=== PATIENT | female | born 1940 | race Caucasian/White ===

== ENCOUNTER 2020-07-30 11:00 | Inpatient (IN) | payer MEDICARE ==
[~2020-07-30] VITALS: Ht 157.5 cm; Wt 55.5 kg
[2020-07-30] MEDS ORDERED: ASPIRIN 81 MG CHEW TAB PO ONE (11:30)
[2020-07-30 11:46] LABS: HEMATOCRIT 44.1 % (34.2-44.1); HEMOGLOBIN 12.9 g/dL (12.0-16.0); MEAN CORPUSCULAR HGB CONC 29.3 g/dL (31-35); MEAN CORPUSCULAR VOLUME 71.7 fL (81-99); RED BLOOD COUNT 6.15 x10e6/uL (3.6-5.1); RED CELL DISTRIBUTION WIDTH 21.4 % (11.7-14.4)
[2020-07-30 11:47] LABS: BASOPHILS % 0.4 % (0.0-1.0); EOSINOPHILS % 0.8 % (0.0-6.0); LYMPHOCYTES # (AUTO) 0.4 (1.0-3.2); LYMPHOCYTES % 9.1 % (18.0-39.1); MONOCYTES # (AUTO) 0.3 (0.2-0.8); MONOCYTES % 5.9 % (4.4-11.3); NEUTROPHILS # (AUTO) 3.9 (2.1-6.9); NEUTROPHILS % 83.4 % (38.7-80.0); PLATELET COUNT 284 x10e3/uL (140-360)
[2020-07-30 12:07] LABS: ALANINE AMINOTRANSFERASE 9 IU/L (0-55); ALBUMIN 3.6 g/dL (3.5-5.0); ALKALINE PHOSPHATASE 181 IU/L (40-150); ANION GAP 16.3 mmol/L (8-16); BLOOD UREA NITROGEN 9 mg/dL (7-26); BUN/CREATININE RATIO 11 (6-25); CALCIUM 8.5 mg/dL (8.4-10.2); CARBON DIOXIDE 25 mmol/L (22-29); CHLORIDE 103 mmol/L (98-107); CREATINE KINASE 25 IU/L (29-168); CREATININE, SERUM 0.81 mg/dL (0.57-1.11); EST GLOMERULAR FILTRATION RATE > 60 ML/MIN (60-); GLUCOSE 119 mg/dL (74-118); POTASSIUM 3.3 mmol/L (3.5-5.1); SODIUM 141 mmol/L (136-145)
[2020-07-30] MEDS: ASPIRIN 81 MG CHEW TAB PO ONE ×2 (13:15→13:45)
[2020-07-30 15:35] VITALS: BP 183/88
[2020-07-30 15:43] VITALS: BP 183/88
[2020-07-30 15:54] VITALS: BP 182/92
[2020-07-30] MEDS ORDERED: POTASSIUM CHLORIDE 20 MEQ TAB CR PO STA (16:13)
[2020-07-30 20:00] VITALS: BP 174/89
[2020-07-30] MEDS ORDERED: HYDRALAZINE HCL10 MG IV (20:11)
[2020-07-30 20:28] LABS: CREATINE KINASE MB 0.6 ng/mL (0-5.0)
[2020-07-30] MEDS ORDERED: HYDRALAZINE HCL 20 MG/ML VIAL ONE (22:01)
[2020-07-30] MEDS ORDERED: SODIUM CHLORIDE 0.9% 250ML 250 ML ONE (23:26)
[2020-07-30] MEDS ORDERED: HYDRALAZINE HCL 20 MG/ML VIAL IV PRN (23:45)
[2020-07-30] MEDS: SODIUM CHLORIDE 0.9% 1000ML 250 ML IV SCH (23:45)
[2020-07-31] VITALS (7 sets, daily range): BP systolic 105–149; BP diastolic 57–102
[2020-07-31] MEDS: SODIUM CHLORIDE 0.9% 1000ML 250 ML IV SCH (00:35)
[2020-07-31] MEDS ORDERED: HYDRALAZINE HCL 20 MG/ML VIAL IV PRN (03:45)
[2020-07-31 06:06] LABS: BASOPHILS % 0.5 % (0.0-1.0); EOSINOPHILS % 0.2 % (0.0-6.0); HEMATOCRIT 41.4 % (34.2-44.1); HEMOGLOBIN 12.3 g/dL (12.0-16.0); LYMPHOCYTES # (AUTO) 0.6 (1.0-3.2); LYMPHOCYTES % 10.5 % (18.0-39.1); MEAN CORPUSCULAR HEMOGLOBIN 21.1 pg (28-32); MEAN CORPUSCULAR HGB CONC 29.7 g/dL (31-35); MEAN CORPUSCULAR VOLUME 71.1 fL (81-99); MONOCYTES # (AUTO) 0.3 (0.2-0.8); MONOCYTES % 5.6 % (4.4-11.3); NEUTROPHILS # (AUTO) 4.7 (2.1-6.9); NEUTROPHILS % 82.8 % (38.7-80.0); PLATELET COUNT 249 x10e3/uL (140-360); RED BLOOD COUNT 5.82 x10e6/uL (3.6-5.1); RED CELL DISTRIBUTION WIDTH 21.6 % (11.7-14.4)
[2020-07-31 06:32] LABS: ALANINE AMINOTRANSFERASE 10 IU/L (0-55); ALBUMIN 3.2 g/dL (3.5-5.0); ALKALINE PHOSPHATASE 162 IU/L (40-150); ANION GAP 14.1 mmol/L (8-16); BLOOD UREA NITROGEN 10 mg/dL (7-26); BUN/CREATININE RATIO 13 (6-25); CALCIUM 8.2 mg/dL (8.4-10.2); CARBON DIOXIDE 22 mmol/L (22-29); CHLORIDE 109 mmol/L (98-107); CREATININE, SERUM 0.79 mg/dL (0.57-1.11); EST GLOMERULAR FILTRATION RATE > 60 ML/MIN (60-); GLUCOSE 102 mg/dL (74-118); POTASSIUM 4.1 mmol/L (3.5-5.1); SODIUM 141 mmol/L (136-145)
[2020-07-31 06:55] LABS: CREATINE KINASE MB 1.4 ng/mL (0-5.0)
[2020-07-31] MEDS ORDERED: DOCUSATE SODIUM 100 MG CAP PO PRN (07:00)
[2020-07-31] MEDS ORDERED: ACETAMINOPHEN 325 MG TAB PO PRN (07:00)
[2020-07-31] MEDS: FAMOTIDINE 20 MG TAB PO SCH ×2 (07:30→16:21)
[2020-07-31] MEDS: METOPROLOL TARTRATE 25 MG TAB PO SCH ×2 (08:00→21:11)
[2020-07-31] MEDS: BENZONATATE 100 MG CAP PO SCH ×3 (08:28→21:00)
[2020-07-31] MEDS: AZITHROMYCIN 500MG/NS 250 ML 250 ML IV SCH (08:30)
[2020-07-31] MEDS ORDERED: SODIUM CHLORIDE 0.9% 250ML 250 ML ONE (08:35)
[2020-07-31] MEDS ORDERED: SODIUM CHLORIDE 0.9% 50ML 50 ML ONE (10:04)
[2020-07-31] MEDS ORDERED: IOPAMIDOL 370 MG/ML 200 ML INFUS..BTL INJ ONE (10:04)
[2020-07-31] MEDS ORDERED: REGADENOSON 0.4 MG/5 ML SYR IV ONE (12:06)
[2020-07-31] MEDS: LOSARTAN POTASSIUM 100 MG TAB PO SCH (17:12)
[2020-08-01] VITALS (7 sets, daily range): BP systolic 113–152; BP diastolic 65–77
[2020-08-01] MEDS: FAMOTIDINE 20 MG TAB PO SCH ×2 (08:00→17:07)
[2020-08-01] MEDS: BENZONATATE 100 MG CAP PO SCH ×3 (09:00→21:03)
[2020-08-01] MEDS: AZITHROMYCIN 500MG/NS 250 ML 250 ML IV SCH (09:17)
[2020-08-01] MEDS: LOSARTAN POTASSIUM 100 MG TAB PO SCH (09:17)
[2020-08-01] MEDS: METOPROLOL TARTRATE 25 MG TAB PO SCH ×2 (09:17→21:03)
[2020-08-02] VITALS (8 sets, daily range): BP systolic 118–158; BP diastolic 59–80
[2020-08-02] MEDS: FAMOTIDINE 20 MG TAB PO SCH ×2 (07:50→17:00)
[2020-08-02] MEDS: AZITHROMYCIN 500MG/NS 250 ML 250 ML IV SCH (08:28)
[2020-08-02] MEDS: BENZONATATE 100 MG CAP PO SCH ×3 (09:00→21:52)
[2020-08-02] MEDS: LOSARTAN POTASSIUM 100 MG TAB PO SCH (09:24)
[2020-08-02] MEDS: METOPROLOL TARTRATE 25 MG TAB PO SCH ×2 (09:24→21:52)
[2020-08-02] MEDS ORDERED: FUROSEMIDE INJ 10 MG/ML 4 ML VIAL IV ONE (20:00)
[2020-08-02] MEDS ORDERED: ALBUTEROL/IPRATROPIUM 3 ML NEB NEB PRN (20:15)
[2020-08-03] VITALS: BP 141/72
[2020-08-03] MEDS: ALBUTEROL/IPRATROPIUM 3 ML NEB NEB SCH ×3 (00:15→13:24)
[2020-08-03 04:00] VITALS: BP 118/65
[2020-08-03] MEDS ORDERED: FUROSEMIDE INJ 10 MG/ML 2 ML VIAL IV SCH (06:00)
[2020-08-03 06:24] LABS: BASOPHILS % 0.4 % (0.0-1.0); EOSINOPHILS # (AUTO) 0.1 (0.0-0.4); HEMATOCRIT 40.1 % (34.2-44.1); LYMPHOCYTES # (AUTO) 0.5 (1.0-3.2); LYMPHOCYTES % 9.4 % (18.0-39.1); MEAN CORPUSCULAR HEMOGLOBIN 21.4 pg (28-32); MEAN CORPUSCULAR HGB CONC 29.9 g/dL (31-35); MEAN CORPUSCULAR VOLUME 71.5 fL (81-99); MONOCYTES # (AUTO) 0.4 (0.2-0.8); MONOCYTES % 8.1 % (4.4-11.3); NEUTROPHILS # (AUTO) 4.3 (2.1-6.9); NEUTROPHILS % 79.7 % (38.7-80.0); PLATELET COUNT 254 x10e3/uL (140-360); RED BLOOD COUNT 5.61 x10e6/uL (3.6-5.1); RED CELL DISTRIBUTION WIDTH 21.4 % (11.7-14.4)
[2020-08-03 06:46] LABS: ANION GAP 13.7 mmol/L (8-16); BLOOD UREA NITROGEN 10 mg/dL (7-26); BUN/CREATININE RATIO 12 (6-25); CARBON DIOXIDE 22 mmol/L (22-29); CHLORIDE 108 mmol/L (98-107); CREATININE, SERUM 0.81 mg/dL (0.57-1.11); EST GLOMERULAR FILTRATION RATE > 60 ML/MIN (60-); GLUCOSE 100 mg/dL (74-118); MAGNESIUM 1.9 MG/DL (1.3-2.1); PHOSPHORUS 3.7 MG/DL (2.3-4.7); POTASSIUM 3.7 mmol/L (3.5-5.1); SODIUM 140 mmol/L (136-145)
[2020-08-03 07:37] VITALS: BP 131/62
[2020-08-03 07:44] VITALS: BP 131/62
[2020-08-03] MEDS: AZITHROMYCIN 500MG/NS 250 ML 250 ML IV SCH ×2 (08:00→09:37)
[2020-08-03] MEDS: BENZONATATE 100 MG CAP PO SCH (09:00)
[2020-08-03] MEDS: FAMOTIDINE 20 MG TAB PO SCH (09:36)
[2020-08-03] MEDS: LOSARTAN POTASSIUM 100 MG TAB PO SCH (09:56)
[2020-08-03] MEDS: METOPROLOL TARTRATE 25 MG TAB PO SCH (09:57)
[2020-08-03 11:27] VITALS: BP 59/43
[2020-08-03] MEDS ORDERED: AZITHROMYCIN 250 MG TAB PO SCH (12:00)
[2020-08-03] MEDS ORDERED: LOSARTAN POTASS25 MG PO (14:47)
[2020-08-03] MEDS ORDERED: AZITHROMYCIN250 MG PO (14:47)
[2020-08-03] MEDS ORDERED: LOPRESSOR25 MG PO (14:47)
[2020-08-03] MEDS ORDERED: FAMOTIDINE20 MG PO (14:47)
[2020-08-03] MEDS ORDERED: TESSALON PERLE100 MG PO (14:47)
[2020-08-03] MEDS ORDERED: LASIX10 MG/ML PO (14:47)
[2020-08-03] MEDS ORDERED: FUROSEMIDE 20 MG TAB PO SCH (21:00)
== END 2020-08-03 15:20 | disposition home or self-care (01) | DRG 304 ==
LOC: ER 11:55 → ERHOLD 13:11 → MED/SURG3 15:26 → OBSVTOIN 08-01 14:02
PROVIDERS: ADMIT Internal Medicine; ATTEND Internal Medicine
DX: I16.0 Hypertensive urgency (principal); J96.01 Acute respiratory failure with hypoxia; I50.31 Acute diastolic (congestive) heart failure; J90 Pleural effusion, not elsewhere classified; Z20.822 Contact with and (suspected) exposure to COVID-19; E87.6 Hypokalemia; R13.10 Dysphagia, unspecified; I11.0 Hypertensive heart disease with heart failure; Z85.3 Personal history of malignant neoplasm of breast; E78.5 Hyperlipidemia, unspecified
CPT/HCPCS: 36415; 71045; 71260; 74230; 76604; 78452; 80048; 80053; 82550; 82553; 82948; 83735; 83880; 84100; 84484; 85025; 93005; 93017; 93306; 94640; 99284; A9502; G0378; J0360; J0456; J1940; J7050; Q9967; U0002

== ENCOUNTER → 2020-09-15 | Outpatient (CLI) | payer MEDICARE ==
[~2020-09-15] VITALS: Ht 157.5 cm; Wt 55.3 kg
[~2020-09-15] MED LIST: ACETAMINOPHEN 325 MG TAB PO PRN; AZITHROMYCIN250 MG PO; DOCUSATE SODIUM 100 MG CAP PO PRN; FAMOTIDINE 20 MG TAB PO SCH; FAMOTIDINE20 MG PO; HYDRALAZINE HCL10 MG IV; IOPAMIDOL 370 MG/ML 200 ML INFUS..BTL INJ ONE; LASIX10 MG/ML PO; LOPRESSOR25 MG PO; LOSARTAN POTASS25 MG PO; LOSARTAN POTASSIUM 25 MG TAB PO SCH; METOPROLOL TARTRATE 25 MG TAB PO SCH; ONDANSETRON HCL INJ 2MG/ML 2ML 2 MG/ML VIAL IV PRN; SODIUM CHLORIDE 0.9% 1000ML 1,000 ML IV STA; SODIUM CHLORIDE 0.9% 50ML 50 ML ONE; TESSALON PERLE100 MG PO
[2020-09-15 19:20] LABS: BASOPHILS % 0.4 % (0.0-1.0); EOSINOPHILS # (AUTO) 0.1 (0.0-0.4); EOSINOPHILS % 1.3 % (0.0-6.0); HEMATOCRIT 45.2 % (34.2-44.1); HEMOGLOBIN 13.9 g/dL (12.0-16.0); LYMPHOCYTES # (AUTO) 0.4 (1.0-3.2); LYMPHOCYTES % 8.7 % (18.0-39.1); MEAN CORPUSCULAR HEMOGLOBIN 22.5 pg (28-32); MEAN CORPUSCULAR HGB CONC 30.8 g/dL (31-35); MONOCYTES # (AUTO) 0.4 (0.2-0.8); MONOCYTES % 7.8 % (4.4-11.3); NEUTROPHILS # (AUTO) 3.7 (2.1-6.9); NEUTROPHILS % 81.4 % (38.7-80.0); PLATELET COUNT 266 x10e3/uL (140-360); RED BLOOD COUNT 6.19 x10e6/uL (3.6-5.1); RED CELL DISTRIBUTION WIDTH 24.3 % (11.7-14.4)
[2020-09-15 19:36] LABS: ALANINE AMINOTRANSFERASE 11 IU/L (0-55); ALBUMIN 3.4 g/dL (3.5-5.0); ALKALINE PHOSPHATASE 204 IU/L (40-150); ANION GAP 17.4 mmol/L (8-16); BLOOD UREA NITROGEN 16 mg/dL (7-26); BUN/CREATININE RATIO 22 (6-25); CALCIUM 8.8 mg/dL (8.4-10.2); CARBON DIOXIDE 24 mmol/L (22-29); CHLORIDE 102 mmol/L (98-107); CREATININE, SERUM 0.73 mg/dL (0.57-1.11); EST GLOMERULAR FILTRATION RATE > 60 ML/MIN (60-); GLUCOSE 98 mg/dL (74-118); POTASSIUM 3.4 mmol/L (3.5-5.1); SODIUM 140 mmol/L (136-145)
[2020-09-15 20:22] LABS: CREATINE KINASE MB 1.6 ng/mL (0-5.0)
[2020-09-16] VITALS: BP 168/106
== END | disposition home or self-care (01) ==
LOC: EDSTATUS 13:18 → ER 19:20 → ERHOLD 22:23 → UNDOADMOB 22:23 → DX 22:23 → UNDODISOB 09-16 → ER 09-16
PROVIDERS: ATTEND Student in an Organized Health Care Education/Training Program
DX: R13.10 Dysphagia, unspecified (principal); I47.1 Supraventricular tachycardia; J90 Pleural effusion, not elsewhere classified; K22.9 Disease of esophagus, unspecified; K44.9 Diaphragmatic hernia without obstruction or gangrene; M89.9 Disorder of bone, unspecified; Z85.3 Personal history of malignant neoplasm of breast; Z90.12 Acquired absence of left breast and nipple
CPT/HCPCS: 36415; 70491; 71260; 80053; 82550; 82553; 83880; 84484; 85025; 93005; J7030; Q9967; 99284; G0378